=== PATIENT | male | born 1950 | race Caucasian/White ===

== ENCOUNTER 2018-07-24 11:52 | Observation (INO) | payer MEDICARE ==
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
[~2018-07-24 11:52] MED LIST: Buffered Lidocaine 1% SYRIN* 1 ML/SYRINGE INTRADERM ONE; Dexamethasone IV* 4 MG/ML 1 ML (4 MG) IV SLOW PU ONE; Famotidine IV* 10 MG/ML 2 ML (20 mg) IV ONE; HYDROcodone/ACETAMIN 5-325 MG* 1 TAB PO PRN; Ketorolac INJ* 30 MG/ML 1 ML VIAL IV PRN; Lactated Ringers 1000 ML Bag* 1,000 ML IV SCH; Naloxone* 0.4 MG/ML 1 ML VIAL IV PRN; fentaNYL* 50 MCG/ML 2 ML VIAL (100 MCG VIAL) IV PRN; oxyCODONE/Acetamin 5/325 MG* TAB PO PRN
[2018-07-24] MEDS ORDERED: Bupivacaine 0.25% SDV PF* 10 ML VIAL INJ ONE (12:15)
[2018-07-24] MEDS ORDERED: Lidocaine 1% INJ* 10 MG/ML 30 ML SDV ONE (12:15)
[2018-07-24] MEDS ORDERED: Dexamethasone IV* 4 MG/ML 1 ML (4 MG) ONE (12:20)
[2018-07-24] MEDS ORDERED: Famotidine IV* 10 MG/ML 2 ML (20 mg) ONE (12:21)
[2018-07-24] MEDS ORDERED: Propofol* 10 MG/ML 20 ML BTL ONE (13:46)
[2018-07-24] MEDS ORDERED: fentaNYL* 50 MCG/ML 2 ML VIAL (100 MCG VIAL) ONE ×3 (13:46→16:36)
[2018-07-24] MEDS ORDERED: Midazolam* 1 MG/ML 5 ML VIAL (5 MG) ONE (13:46)
[2018-07-24] MEDS ORDERED: Lidocaine 2% PF * 5 ML VIAL ONE (13:46)
[2018-07-24] MEDS ORDERED: Succinylcholine* 20 MG/ML 10 ML VIAL ONE (13:46)
[2018-07-24] MEDS ORDERED: KETAMINE HCL* 50 MG/ML 10 ML VIAL ONE (14:52)
[2018-07-24] MEDS ORDERED: EPHEDrine (Pressors)* 50 MG/ML VIAL ONE (15:16)
[2018-07-24] MEDS ORDERED: Ondansetron INJ* 2 MG/ML VIAL ONE (17:09)
[2018-07-24] MEDS ORDERED: Ondansetron INJ* 2 MG/ML VIAL IV PRN (17:25)
[2018-07-24] MEDS ORDERED: oxyCODONE/Acetamin 5/325 MG* TAB PO PRN ×2 (17:25→21:04)
[2018-07-24] MEDS ORDERED: Ibuprofen TAB* 600 MG PO PRN (17:25)
[2018-07-24] MEDS ORDERED: Acetaminophen TAB* 325 MG PO PRN (17:25)
[2018-07-24] MEDS ORDERED: Lactated Ringers 1000 ML Bag* 1,000 ML IV SCH (19:00)
[2018-07-24] MEDS ORDERED: Hydrochlorothiazide TAB* 25 MG PO SCH (21:00)
[2018-07-24] MEDS ORDERED: Losartan TAB* 25 MG PO SCH (21:00)
[2018-07-24] MEDS: Docusate CAP* 100 MG PO SCH (22:19)
--- NOTE | 2018-07-25 01:45 | OP ---
DATE OF OPERATION: 07/24/18 - ROOM #335 DATE OF : 50 SERVICE: General Surgery. SURGEON: Anushka Lara MD COUNSELING CASE MANAGER: Tess Pacheco NP ANESTHESIOLOGIST: Dr. Fernando. ANESTHESIA: General endotracheal anesthesia. PRE-OP DIAGNOSIS: Right thyroid nodule, [place] V (suspicious for malignancy). POST-OP DIAGNOSIS: Right thyroid nodule, [place] V (suspicious for malignancy) . OPERATIVE PROCEDURE: Right thyroid lobectomy. SPECIMEN: Right thyroid lobe. ESTIMATED BLOOD LOSS: Minimal, less than 10 cc. INDICATIONS: Mr. Garcia is a 68-year-old gentleman with an incidental finding of a right thyroid nodule. He has had this nodule biopsied, and on his most recent FNA biopsy, it was [place] V, concerning for malignancy. He therefore gave informed consent for a diagnostic right-sided lobectomy. He understood the risks, benefits, and alternatives of the procedure and he wished to proceed. DESCRIPTION OF PROCEDURE: The patient was brought back to the operating room and placed on the operating table in the supine position. Sequential compression devices were placed on the bilateral lower extremities for DVT prophylaxis. Antibiotics were not administered. The patient underwent general endotracheal anesthesia and his neck was placed in an extended position. A time -out was preformed verifying the patient's name, MR number, and procedure to be performed. Local anesthesia consisting of 1% lidocaine with 0.25% Marcaine was infiltrated into the anterior neck. Once this was done, the neck was prepped and draped in normal sterile fashion after placing the electrodes for the nerve monitor. An additional time-out was performed verifying again the patient name , MR number, and the procedure to be performed, which was a right-sided thyroid lobectomy. Next, in a natural crease, an anterior neck transverse incision was made approximately 2 to 3 fingerbreadths above the sternal notch. The skin was divided down to the subcutaneous tissue and through the platysma. The inferior and superior subplatysmal flaps were then developed and then the median raphe between the strap muscles were divided. The isthmus of the thyroid was identified and a tunnel was made posterior to the isthmus of the thyroid. The 2 DARRION veins were then divided. Once this was done, the right thyroid lobe and isthmus were divided flush against where the left thyroid lobe was and retracted off the trachea. Next, the medial attachments of the thyroid lobe to the trachea were then divided using LigaSure and then the space of Reeve's was developed. After this was done, the thyroid lobe was rotated laterally and the strap muscles were dissected off of the thyroid lobe and the space lateral to the thyroid was then developed. After this was done, the superior pole vessels were taken down using a combination of LigaSure and 2-0 silk ties, and once this was done, the thyroid lobe was much more mobile and was able to be lifted up and out of the neck. With great care, the right recurrent laryngeal nerve was identified visually as well as using the nerve monitor. The course was traced out inferiorly and superiorly and the right upper parathyroid was also identified posterior to the nerve. Once this was done, the nerve was identified and protected. The right thyroid lobe was then taken off the trachea using LigaSure. It was then oriented with the upper lobe marked with a stitch and then carried off the table as specimen. Next, attention was turned towards obtaining hemostasis. Once hemostasis was obtained, Tisseel was placed into the neck cavity for additional hemostasis. The strap muscles were reapproximated using interrupted Vicryl sutures and the platysma was reapproximated using interrupted Vicryl sutures. The skin was closed using a running Prolene suture and sterile dressing was then placed. At the end of the case, general endotracheal anesthesia was reversed and he was taken to the PACU in stable condition. At the end of the case, all counts were correct and I was present during the entirety of the case. [id number]/[facility] #: [id number] YOGI
[2018-07-25] MEDS: Docusate CAP* 100 MG PO SCH (07:34)
[2018-07-25 07:35] VITALS: BP 119/70
[2018-07-25] MEDS ORDERED: Fenofibrate(NF) 145 MG TAB PO SCH (09:00)
[2018-07-25] MEDS ORDERED: diPHENhydraMINE PO* 25 MG PO SCH (09:00)
[2018-07-25] MEDS ORDERED: Pantoprazole TAB (NF) 20 MG TAB PO SCH (09:00)
--- NOTE | 2018-07-25 11:30 | DS ---
DISCHARGE SUMMARY: DATE OF ADMISSION: 07/24/18 DATE OF DISCHARGE: 07/25/18 ADMISSION DIAGNOSIS: Right thyroid nodule, [place] V. DISCHARGE DIAGNOSIS: Right thyroid nodule, [place] V. OPERATION TITLE: Right thyroid lobectomy. HOSPITAL COURSE: Mr. Garcia is a 68-year-old male who had presented for an elective right hemithyroidectomy on 07/24/18. This was done for incidentally found right thyroid nodule that had been biopsied as [place] V or concerning for malignancy. He, therefore, wished to undergo a diagnostic right thyroid lobectomy. He tolerated this procedure well, however, given how late the procedure had been done and given the fact that he also required a 6-hour period of observation, he elected to remain overnight for observation. This morning he is doing well. He has no complaints , a little bit of soreness in his throat, however, his voice is normal and he had very little pain. Therefore, he is able to be discharged this morning. DISCHARGE MEDICATIONS: None. PHYSICAL EXAMINATION: Neck: Dressing is in place. Small amount of swelling around the Steri-Strips. CONDITION: Good. DISPOSITION: Home. DISCHARGE INSTRUCTIONS: Please see pre-printed discharge instructions. The patient will call the office on Friday to make a followup appointment to me to have his suture removed. [id number]/[facility] #: [id number] YOGI
== END 2018-07-25 10:45 | disposition home or self-care (01) ==
LOC: OR 11:52 → SSU 17:26
PROVIDERS: ADMIT Surgery; ATTEND Surgery
DX: E04.1 Nontoxic single thyroid nodule (principal); I10 Essential (primary) hypertension; F17.210 Nicotine dependence, cigarettes, uncomplicated; E78.5 Hyperlipidemia, unspecified; K21.9 Gastro-esophageal reflux disease without esophagitis; D72.829 Elevated white blood cell count, unspecified
CPT/HCPCS: 36430; 88307; 96374; A9270-GY; C1776; G0378; J0330; J1100; J2250; J2405; J2704; J3010; J3490